=== PATIENT | male | born 1995 | race Hispanic/Latino ===

== ENCOUNTER 2024-08-10 11:21 | Emergency (ER) | payer SELFPAY ==
[~2024-08-10] VITALS: Ht 175.3 cm; Wt 89.0 kg
[2024-08-10] MEDS ORDERED: KETOROLAC TROMETHAMINE 15 MG/ML SDV IV ONE (12:05)
[2024-08-10 12:27] LABS: URINE BILIRUBIN - DIPSTICK Negative (NEGATIVE); URINE BLOOD DIPSTICK Negative (NEGATIVE); URINE GLUCOSE - DIPSTICK Negative (NEGATIVE); URINE KETONE Negative (NEGATIVE); URINE LEUK ESTERASE Negative (NEGATIVE); URINE NITRITE - DIPSTICK Negative (Negative); URINE PROTEIN - DIPSTICK Negative (NEG-TRACE); URINE UROBILINOGEN - DIPSTICK 0.2 E.U./dL (0.2)
[2024-08-10 12:31] LABS: URINE COLOR Yellow
[2024-08-10 12:36] LABS: BASO% 0.7 % (0-3); HEMATOCRIT 46.2 % (39.0-50.0); HEMOGLOBIN 15.1 g/dl (14.0-18.0); IMMATURE GRANULOCYTES 0.3 % (0.0-5.0); LYMPH% 27.9 % (15-41); MEAN CELL VOLUME 84.3 fL CALC (80.0-100.0); MEAN CORPUSCULAR HGB 27.6 pG CALC (26.0-32.0); MEAN CORPUSCULAR HGB CONC 32.7 g/dL CAL (32.0-36.0); MONO% 6.7 % (2-13); NEUT# 4.37 thou/uL (1.82-7.42); NEUT% 62.4 % (42-76); RED BLOOD COUNT 5.48 mill/uL (4.70-6.10); RED CELL DISTRI WIDTH 12.6 % (11.5-15.5)
[2024-08-10 12:39] LABS: ALBUMIN 4.9 g/dL (3.2-5.0); BILIRUBIN, TOTAL 0.6 mg/dL (0.2-1.3); CREATININE 0.7 mg/dL (0.7-1.3); TOTAL PROTEIN 7.7 g/dL (6.3-8.2)
[2024-08-10] MEDS ORDERED: METRONIDAZOLE500 MG PO (15:13)
[2024-08-10] MEDS ORDERED: CIPROFLOXACN500 MG PO (15:13)
[2024-08-10 15:20] VITALS: BP 105/63
== END 2024-08-10 15:30 | disposition home or self-care (01) | DRG 392 ==
LOC: ED 11:21
PROVIDERS: Family Medicine
DX: K52.9 Noninfective gastroenteritis and colitis, unspecified (principal)
CPT/HCPCS: J1885; Q9967